=== PATIENT | female | born 1960 | race Caucasian/White ===

== ENCOUNTER 2018-04-15 11:12 | Day surgery (SDC) | payer OTHER ==
--- NOTE | 2018-03-31 06:31 | HP ---
AMENDED REPORT NOW INCLUDES DESIGNATED COSIGNER CC: Bear Hunt MD * PREOPERATIVE HISTORY AND PHYSICAL: DATE OF ADMISSION/SURGERY: 04/15/18 This patient is scheduled for same-day surgery admission by Dr. Negro on , 04/15/18. DATE OF PREOPERATIVE HISTORY AND PHYSICAL EXAMINATION: 03/30/18. ATTENDING SURGEON: Edson Negro MD * (dictated by Shiloh Tillman NP). CHIEF COMPLAINT: Umbilical mass. HISTORY OF PRESENT ILLNESS: The patient is a 57-year-old female who initially saw Dr. Negro on 01/20/18 when she noticed a lump in the umbilical region associated with mild pain. She was examined and Dr. Negro noted a palpable supraumbilical hernia approximately 3 cm across, not readily reducible and nontender. Dr. Negro explained to her that most likely there is incarcerated fat and a supraumbilical ventral hernia. There was no need for emergent surgery and the patient wanted to wait until she had a break in her work schedule. She has returned now for preoperative history and physical examination and will undergo open ventral hernia repair with possible mesh on , 04/15/18. Dr. Negro discussed the findings with the patient and the nature of the surgical procedure and today, I discussed the typical postoperative care and recovery. The patient has had a chance to ask questions and stated that she understands the information and is satisfied with the answers given to her questions. She will sign surgical consent on the day of surgery. She denies any signs or symptoms to suggest incarceration or strangulation and has not had any increased pain or change in bowel habits. She has been able to continue exercising. PAST MEDICAL HISTORY: Generally healthy. She reports that about 5 years ago, her hemoglobin A1c was borderline and she was told that she was prediabetic; she has tried to change her diet and has been consistently exercising. PAST SURGICAL HISTORY: None. MEDICATIONS: None. ALLERGIES: LIDOCAINE with EPINEPHRINE at age 19 caused shortness of breath, difficulty swallowing, light sensitivity, and a panic attack. We are checking with her dental office to find out what local anesthesia she has been able to tolerate more recently. FAMILY HISTORY: Mother age 77 with a history of leukemia and dementia. Father age 75 with a history of ALS. No known anesthesia reactions, bleeding tendencies, or clotting disorders. 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 She drinks 2 to 3 alcoholic beverages per week on average and denies the use of other substances. She does routine exercise. REVIEW OF SYSTEMS: Constitutional: No fevers, chills, excessive fatigue, or unintended weight loss. Endocrine: Was diagnosed with prediabetes about 5 years ago, currently controlled with diet and exercise; no known thyroid disease. Hematologic: No easy bruising or bleeding. She has never received a blood transfusion. Respiratory: No dyspnea on exertion. No chronic cough. She is a nonsmoker. Cardiovascular: No anginal chest pain or palpitations. She exercises by doing Pilates, yoga, and Meredith. Gastrointestinal: No nausea, vomiting, diarrhea, GI bleeding or constipation or change in bowel habits. Genitourinary: No dysuria. No change in bladder habits. Musculoskeletal: No joint or back pain reported. Integumentary: Rash in the left axilla consistent with fungal rash. Today, I prescribed nystatin cream. No other skin changes. Neurologic: No headache or blurred vision. No areas of focal weakness or numbness. General: No history of deep vein thrombosis or pulmonary embolism. She has never received general anesthesia and as previously mentioned, she does have an allergy to LIDOCAINE with EPINEPHRINE. She denies any history of MRSA and has not had any problems with wound healing. PHYSICAL EXAMINATION GENERAL SURVEY: The patient is a 57-year-old female, well developed, well nourished, in no acute distress. VITAL SIGNS: Height 68.5 inches, weight 175 pounds, body mass index 26.2. Blood pressure 118/74, pulse 72 and regular, respiratory rate 16, temperature 98.1 tympanic. HEENT: Benign. NECK: Supple. No cervical lymphadenopathy. No thyromegaly. LUNGS: Breath sounds bilaterally clear and equal. HEART: Regular rate and rhythm. No murmurs or rubs appreciated. ABDOMEN: Active bowel sounds. Soft, nondistended, and nontender; there is a palpable supraumbilical hernia which is approximately 3 cm across, not readily reducible, but nontender. BACK: No CVA tenderness. PELVIC: Exam deferred. RECTAL: Exam deferred. EXTREMITIES: Warm without edema or skin ulceration. NEUROLOGIC: Alert and oriented x3. Steady gait. SKIN: Warm, dry, intact except for area of fungal rash in the left axillary region. IMPRESSION: Supraumbilical ventral hernia. PLAN: Same-day surgery admission to Dr. Negro's service on , 04/15/18 , for open repair of supraumbilical ventral hernia with mesh. RAVEN TILLMAN, FISH HATCHERY SUPERVISOR [id number]/CPS #: [id number] [facility]OSPITALSiena
[~2018-04-15 11:12] MED LIST: Dexamethasone IV* 4 MG/ML 1 ML (4 MG) IV SLOW PU ONE; Famotidine IV* 10 MG/ML 2 ML (20 mg) IV ONE
[2018-04-15] MEDS ORDERED: Dexamethasone IV* 4 MG/ML 1 ML (4 MG) ONE (11:51)
[2018-04-15] MEDS ORDERED: ceFAZolin 2 GM PREMIX in ORs 2 GM/50 ML BAG IVPB ONE (11:51)
[2018-04-15] MEDS ORDERED: Famotidine IV* 10 MG/ML 2 ML (20 mg) ONE (11:51)
[2018-04-15] MEDS ORDERED: Midazolam* 1 MG/ML 5 ML VIAL (5 MG) ONE (13:46)
[2018-04-15] MEDS ORDERED: fentaNYL* 50 MCG/ML 2 ML VIAL (100 MCG VIAL) ONE (13:46)
[2018-04-15] MEDS ORDERED: DiMENhydriNATE IV* 50 MG/ML VIAL IV PUSH PRN (13:47)
[2018-04-15] MEDS ORDERED: oxyCODONE/Acetamin 5/325 MG* TAB PO PRN (13:47)
[2018-04-15] MEDS ORDERED: Naloxone* 0.4 MG/ML 1 ML VIAL IV PRN (13:47)
[2018-04-15] MEDS ORDERED: fentaNYL* 50 MCG/ML 2 ML VIAL (100 MCG VIAL) IV PRN (13:47)
[2018-04-15] MEDS ORDERED: HYDROcodone/ACETAMIN 5-325 MG* 1 TAB PO PRN (13:47)
[2018-04-15] MEDS ORDERED: Propofol* 10 MG/ML 20 ML BTL ONE (13:57)
[2018-04-15] MEDS ORDERED: Ketorolac INJ* 30 MG/ML 1 ML VIAL ONE (14:06)
[2018-04-15] MEDS ORDERED: Ondansetron INJ* 2 MG/ML VIAL ONE (14:26)
[2018-04-15 16:09] VITALS: BP 124/77
--- NOTE | 2018-04-16 05:33 | OP ---
CC: Dr. Hunt * DATE OF OPERATION: 04/15/18 - [facility] DATE OF : 62. SURGEON: Edson Negro M.D. WAIT STAFF: Shiloh Tillman NP ANESTHESIOLOGIST: Julia Knight M.D. ANESTHESIA: General anesthetic, local infiltration. PRE-OP DIAGNOSIS: Ventral hernia. POST-OP DIAGNOSIS: Ventral hernia. OPERATIVE PROCEDURE: Repair of ventral hernia with mesh. DESCRIPTION OF PROCEDURE: The patient was supine on the operating room table. After adequate general anesthetic, compression stockings, Pretty Hugger warmer, and intravenous antibiotics, the abdomen was prepped with antiseptic, draped in a sterile fashion. Approximately 3 cm incision was created, maybe 4 to 5 cm above the umbilicus and this was dissected down to the herniated defect. This had protrusion of the preperitoneal fat. The hernia defect was about 1.5 cm across, the fascia was little bit thin especially at the inferior edge, and was felt that an underlay patch might be beneficial. Therefore, a 4.3-cm underlay patch was utilized. It is parachuted in from above and below with 0 Vicryl sutures and then lateral sutures are utilized to close the fascia and secured the patch as well. Hemostasis was good. The adipose was reapproximated with 3- 0 Vicryl and skin with 5-0 Vicryl followed by Steri-Strips. She tolerated the procedure well, was awakened and brought to Recovery in good condition. No complications. No drains. No pathologic specimens. Sponge and instrument counts were correct. Estimated blood loss less than 10 mL. [id number]/[facility] #: [id number] [facility]
--- NOTE | 2018-04-16 06:16 | OP ---
CC: Dr. Hunt * DATE OF OPERATION: 04/15/18 - [facility] DATE OF : 62 SURGEON: Edson Negro MD STAND UP COMEDIAN: Shiloh Tillman NP ANESTHESIOLOGIST: Dr. Knight. ANESTHESIA: General anesthetic, local infiltration. PRE-OP DIAGNOSIS: Supraumbilical ventral hernia. POST-OP DIAGNOSIS: Supraumbilical ventral hernia. OPERATIVE PROCEDURE: Ventral hernia repair with mesh. DESCRIPTION OF PROCEDURE: The patient was supine on the operating room table. After adequate general anesthetic, compression stockings, Pretty Hugger warmer and intravenous antibiotics, the abdomen was prepped with antiseptic and draped in a sterile fashion. Approximately 3 cm incision was created may be 5 cm in the umbilicus and dissection was carried down to a hernia defect which was about 1.5 cm across. The hernia protruded by about 3 cm. This was reduced and the preperitoneal plane was developed and a 4.3 cm underlay patch was utilized. This was sutured in 4 quadrants with 0 Vicryl. The fascia was closed over top with 0 Vicryl. The adipose was closed with 3-0 Vicryl, skin with 5-0 Vicryl followed by a Steri-Strip. She tolerated the procedure well, was awakened, and brought to recovery in good condition. No complications. No drains. No pathologic specimens. Sponge and instrument counts were correct. Estimated blood loss 20 mL. [id number]/[facility] #: [id number] MTDD
== END 2018-04-15 16:10 | disposition home or self-care (01) ==
LOC: OR 11:12
PROVIDERS: ATTEND Surgery
DX: K43.9 Ventral hernia without obstruction or gangrene (principal); R73.03 Prediabetes; Z87.891 Personal history of nicotine dependence
CPT/HCPCS: C1781; J0690; J1100; J1885; J2250; J2405; J2704; J3010

== ENCOUNTER 2018-04-25 20:10 | Emergency (ER) | payer OTHER ==
[2018-04-25] MEDS ORDERED: predniSONE TAB* 20 MG PO ONE (20:38)
--- NOTE | 2018-04-25 20:38 | ED ---
Allergic Reaction/Systemic - HPI Summary HPI Summary: Patient is a 57 y/o F presenting to ED with complaints of possible allergic reaction. She reports that she had surgery ten days ago for ventral hernia. Patient states that she is concerned that she is having an allergic reaction to chlorhexidine. Patient reports she washed off abdomen two days after surgery and developed abdominal rash, neck rash alongside blisters on bilateral upper lower arms after showering. She was advised to take hydrocortisone, which provided relief in Sx. Two days ago, she states that her hands and feet became itchy again. Patient went to work, Sx resolved. The following morning, patient experience the same Sx. She states Sx worsened after showering. Sx resolved once more, had the same episode the following morning. Patient reports no recent change in shampoo, soap, or conditioner. Patient describes today's Sx as pain and pruritis at arms and feet. Sx eventually receded. In the evening, patient had frozen yogurt and reported difficulty swallowing, throat tightening , and tongue swollen, which prompted ED visit. Patient took hydrocodone and advil after the surgery, states she did not take any medications 1-2 days prior to Sx onset. On triage, pain is denied, nothing is noted to aggravate/alleviate Sx. Home medications and allergies are reviewed. - History of Current Complaint Chief Complaint: EDAllergicReaction Time Seen by Provider: 04/25/18 20:19 Hx Obtained From: Patient Onset/Duration: Started hours ago - difficulty swallowing, throat tightening, and tongue swollen, Started days ago - abdominal rash, neck rash alongside blisters on bilateral upper lower arms after showering eight days, two days ago , she states that her hands and feet became itchy again, Resolved Timing: Intermittent, Lasting Hours Severity Currently: None - pain denied Pain Intensity: 0 Pain Scale Used: 0-10 Numeric - 0/10 Location: Discrete @ - abdominal rash, neck rash alongside blisters on bilateral upper lower arms, pruritis at hands and feet Character: Pruritus, Pain Aggravating Factor(s): Nothing Alleviating Factor(s): Nothing Associated Signs And Symptoms: Positive: Throat Tightening, Other: - abdominal rash, neck rash alongside blisters on bilateral upper lower arms, pruritis and pain at hands and feet, tongue swelling, difficulty swallowing - Allergies/Home Medications Allergies/Adverse Reactions: Allergies Allergy/AdvReac Type Severity Reaction Status Date / Time lidocaine Allergy Severe SOB, Verified 04/15/18 11:37 difficulty swallowing chlorhexadine Allergy Hives/Diff. Uncoded 04/25/18 20:13 Breathing/I tching PMH/Surg Hx/FS Hx/Imm Hx Endocrine/Hematology History: Reports: Hx Diabetes - borderline- controlled with diet and exercise Sensory History: Reports: Hx Contacts or Glasses - glasses Denies: Hx Hearing Aid Opthamlomology History: Reports: Hx Contacts or Glasses - glasses - Cancer History Hx Chemotherapy: No Infectious Disease History: No Infectious Disease History: Denies: Traveled Outside the [place] in Last 30 Days - Family History Known Family History: Positive: Diabetes - mother - Social History Alcohol Use: Daily Substance Use Type: Reports: None Smoking Status (MU): Former Smoker Review of Systems Positive: Other - throat swelling, difficulty swallowing Positive: Other - swollen tongue Positive: Other - abdominal rash, neck rash alongside blisters on bilateral upper lower arms, pruritis and pain at hands and feet All Other Systems Reviewed And Are Negative: Yes Physical Exam - Summary Physical Exam Summary: VITAL SIGNS: Reviewed. GENERAL: Patient is a well-developed and nourished female who is lying comfortable in the stretcher. Patient is not in any acute respiratory distress. HEAD AND FACE: No signs of trauma. No ecchymosis, hematomas or skull depressions. No sinus tenderness. EYES: PERRLA, EOMI x 2, No injected conjunctiva, no nystagmus. EARS: Hearing grossly intact. Ear canals and tympanic membranes are within normal limits. MOUTH: Oropharynx within normal limits. NECK: Supple, trachea is midline, no adenopathy, no JVD, no carotid bruit, no c- spine tenderness, neck with full ROM. CHEST: Symmetric, no tenderness at palpation LUNGS: Clear to auscultation bilaterally. No wheezing or crackles. CVS: Regular rate and rhythm, S1 and S2 present, no murmurs or gallops appreciated. ABDOMEN: Soft, non-tender. No signs of distention. No rebound no guarding, and no masses palpated. Bowel sounds are normal. EXTREMITIES: FROM in all major joints, no edema, no cyanosis or clubbing. NEURO: Alert and oriented x 3. No acute neurological deficits. Speech is normal and follows commands. SKIN: Dry and warm; generalized hives Triage Information Reviewed: Yes Vital Signs On Initial Exam: Initial Vitals Temp Pulse Resp BP Pulse Ox 98.9 F 117 20 193/84 95 04/25/18 20:14 04/25/18 20:14 04/25/18 20:14 04/25/18 20:14 04/25/18 20:14 Vital Signs Reviewed: Yes Diagnostics - Vital Signs Vital Signs Temp Pulse Resp BP Pulse Ox 04/25/18 20:14 98.9 F 117 20 193/84 95 - Laboratory Lab Statement: Any lab studies that have been ordered have been reviewed, and results considered in the medical decision making process. Re-Evaluation - Re-Evaluation First Eval Re-Evaluation Time: 21:40 Change: Improved Comment: Patient reports improvement in Sx. Patient will be discharged to home and follow up with PCP. She is agreeable with this. Allergic Reaction Course/Dx - Course Course Of Treatment: Patient is a 57 y/o F presenting to ED with complaints of possible allergic reaction. She reports that she had surgery ten days ago for ventral hernia. Patient states that she is concerned that she is having an allergic reaction to chlorhexidine. Patient reports she washed off abdomen two days after surgery and developed abdominal rash, neck rash alongside blisters on bilateral upper lower arms after showering. She was advised to take hydrocortisone, which provided relief in Sx. Two days ago, she states that her hands and feet became itchy again. Patient went to work, Sx resolved. The following morning, patient experience the same Sx. She states Sx worsened after showering. Sx resolved once more, had the same episode the following morning. Patient reports no recent change in shampoo, soap, or conditioner. Patient describes today's Sx as pain and pruritis at arms and feet. Sx eventually receded. In the evening, patient had frozen yogurt and reported difficulty swallowing, throat tightening, and tongue swollen, which prompted ED visit. Patient took hydrocodone and advil after the surgery, states she did not take any medications 1-2 days prior to Sx onset. On physical exam, generalized hives are noted. During ED course, patient received deltasone tab 60 mg PO ONCE ONE, Atarax 50 mg PO ED ONCE ONE, and Pepcid 40 mg PO ED ONCE ONE. Patient reports improvement in Sx. Patient will be discharged to home and follow up with PCP. She is agreeable with this. - Diagnoses Provider Diagnoses: Allergic reaction Discharge - Sign-Out/Discharge Documenting (check all that apply): Patient Departure - discharge - Discharge Plan Condition: Stable Disposition: HOME Prescriptions: hydrOXYzine HCL TAB* [Atarax 25 MG TAB*] 25 mg PO QID PRN #20 tab PRN Reason: Itching predniSONE TAB* [Deltasone TAB*] 50 mg PO DAILY #5 tab Patient Education Materials: General Allergic Reaction (ED) Referrals: Bear Hunt MD [Primary Care Provider] - 2 Days Additional Instructions: RETURN TO THE EMERGENCY DEPARTMENT FOR CHANGING OR WORSENING SYMPTOMS. FOLLOW UP WITH PRIMARY CARE PHYSICIAN IN 1-2 DAYS. - Attestation Statements Document Initiated by Sesaribe: Yes Documenting Scribe: ROSARIO TOVAR Provider For Whom Mellisa is Documenting (Include Credential): OSBALDO CHEN MD Scribe Attestation: ROSARIO Westbrook , scribed for OSBALDO CHEN MD on 04/26/18 at 0115. Status of Scribe Document: Ready
[2018-04-25] MEDS ORDERED: hydrOXYzine HCL TAB* 50 MG PO ONE (20:39)
[2018-04-25] MEDS ORDERED: Famotidine TAB* 20 MG PO ONE (20:39)
--- OUTSIDE RECORDS SUMMARY | 2018-04-25 20:51 | XMS REPORT ---
:1960 External Reference #:[id number] Author Organization [email or web address] Address [address] [place] [address] [place] [address] Phone [phone] Care Team Providers Name Role Phone Bear Hunt MD Primary Care Physician Unavailable Payers Type Date Identification Numbers Payment Provider Subscriber Commercial Policy Number: [id number] [employer] Viridiana Galvan PayID: [id number] [address] [place] [address] Problems Description No Information Family History Date Family Member(s) Problem(s) Comments Mother Diabetes Type II Social History Type Date Description Comments Marital Status Single Occupation Currently Working Smoking Patient is a former smoker Daily Caffeine Consumes on average 2 cups of regular coffee per day Exercise Type/Frequency Exercises regularly Allergies, Adverse Reactions, Alerts Date Description Reaction Status Severity Comments 01/15/2018 Lidocaine active shortness of breath Medications Medication Date Status Form Strength Qnty SIG Indications Ordering Provider Nystatin Active Cream [id number] 30gm apply to Shiloh 018 /GM affected B. 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 every 6 [place], hours as FUGITIVE DETECTIVE needed for pain No Active Hx Unknown Medications 018 - 018 Vital Signs Date Vital Result Comment 03/30/2018 Height 68.5 inches 5'8.50" Weight 175.00 lb Heart Rate 72 /min BP Systolic Sitting 118 mmHg BP Diastolic Sitting 74 mmHg Respiratory Rate 16 /min Body Temperature 98.1 F BMI (Body Mass Index) 26.2 kg/m2 01/20/2018 Height 68.5 inches 5'8.50" Weight 175.00 lb Heart Rate 84 /min BP Systolic Sitting 118 mmHg BP Diastolic Sitting 80 mmHg Respiratory Rate 18 /min Body Temperature 98.0 F BMI (Body Mass Index) 26.2 kg/m2 Results Description No Information Procedures Description No Information Encounters Type Date Location Provider CPT E/M Dx Office Visit 01/20/2018 [facility], [address] K43.9 11:00a [facility] Plan of Care Future Appointment(s):04/22/2018 1:00 pm - JACKY Lewis at [facility]04/15/2018 9:30 am - JACKY Lewis at [facility]04/15/2018 9:30 am - Edson Negro M.D. at [facility]03/30/2018 - Shiloh Tillman, NPK43.9 Ventral hernia without obstruction or gangreneFollow up:POSTOP 04/22/18Z01.818 Encounter for other preprocedural examination
--- OUTSIDE RECORDS SUMMARY | 2018-04-25 20:51 | XMS REPORT | Continuity of Care Document ---
:1960 External Reference #:[id number] Author Name Arti Rollins Care Team Providers Name Role Phone Bear Hunt MD Primary Care Physician Unavailable Payers Type Date Identification Numbers Payment Provider Subscriber Policy Number: [id number] [employer] Viridiana Galvan PayID: [id number] [address] [place] [address] Advance Directives Description No Information Available Problems Description No Information Family History Date Family Member(s) Problem(s) Comments Mother Diabetes Type II Social History Type Date Description Comments Sex Unknown Marital Status Single Occupation Currently Working Tobacco Use Start: Unknown End: Patient is a former smoker Unknown Smoking Status Reviewed: 04/22/18 Patient is a former smoker Exercise Type/Frequency Exercises regularly Allergies, Adverse Reactions, Alerts Date Description Reaction Status Severity Comments 01/15/2018 Lidocaine Active shortness of breath Medications Medication Date Status Form Strength Qnty SIG Indications Ordering Provider Nystatin Active Cream [id number] 30gm apply to Shiloh 018 /GM affected B. 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 every 6 [place], hours as PRIVATE CHEF needed for pain No Active Hx Unknown Medications 018 - 018 Immunizations Description No Information Available Vital Signs Date Vital Result Comment 04/22/2018 12:57pm Heart Rate 68 /min BP Systolic 116 mmHg BP Diastolic 72 mmHg Respiratory Rate 16 /min Body Temperature 98.8 F 03/30/2018 12:58pm Height 68.5 inches 5'8.50" Weight 175.00 lb Heart Rate 72 /min BP Systolic Sitting 118 mmHg BP Diastolic Sitting 74 mmHg Respiratory Rate 16 /min Body Temperature 98.1 F BMI (Body Mass Index) 26.2 kg/m2 01/20/2018 11:07am Height 68.5 inches 5'8.50" Weight 175.00 lb Heart Rate 84 /min BP Systolic Sitting 118 mmHg BP Diastolic Sitting 80 mmHg Respiratory Rate 18 /min Body Temperature 98.0 F BMI (Body Mass Index) 26.2 kg/m2 Results Test Date Facility Test Result H/L Range Note Laboratory test 04/15/2018 [facility] Point of Care 113 mg/dL High 70-[address] Glucose [place] [phone] Fountain Manager: [id number] Procedures Date Code Description Status 04/15/2018 [id number] Implant For Incisional/Ventral Hernia Repair Completed 04/15/2018 05749 Implant For Incisional/Ventral Hernia Repair Completed 04/15/2018 71333 Implant For Incisional/Ventral Hernia Repair Completed 04/15/2018 71090 Repair Hernia Incisional/Ventral Initial, Reducible Completed 04/15/2018 02274 Repair Hernia Incisional/Ventral Initial, Reducible Completed 04/15/2018 56716 Repair Hernia Incisional/Ventral Initial, Reducible Completed Encounters Type Date Location Provider Dx Diagnosis Office Visit 01/20/2018 [facility], K43.9 Ventral hernia 11:00a [facility] without obstruction or gangrene Plan of Treatment 04/22/2018 - Westley Drew, PAK43.9 Ventral hernia without obstruction or gangreneFollow up:As needed
[2018-04-25 21:52] VITALS: BP 109/77
== END 2018-04-25 21:52 | disposition home or self-care (01) ==
LOC: ED 20:10
DX: R21 Rash and other nonspecific skin eruption (principal); R13.10 Dysphagia, unspecified; Z87.891 Personal history of nicotine dependence; Z88.6 Allergy status to analgesic agent
CPT/HCPCS: 99282; A9270-GY; J7512